=== PATIENT | female | born 2000 | race Caucasian/White ===

== ENCOUNTER 2022-10-21 10:42 | Emergency (ER) | payer OTHER, SELFPAY ==
[2022-10-21 10:51] VITALS: BP 111/78; PULSE 98; RESP 16; TEMP 36.9; O2SAT 100
--- NOTE | 2022-10-21 10:59 | ED.EYEPROB ---
HPI - Eye Problem General Chief complaint: Eye Problems Stated complaint: eyes Time Seen by Provider: 10/21/22 10:59 Source: patient, RN notes reviewed and old records reviewed Mode of arrival: ambulatory Limitations: no limitations History of Present Illness HPI Narrative: 22 year old female presents to [facility] care with complaints of awakening at 0400 with bilateral eyes crusted matted shut with some itching and burning and redness of eyes with some swelling of eyelids. Patient reports that she has used warm compresses to her eyes to remove matting and for comfort measure. Patient reports that right eye vision is a little blurry. Visual acuity noted bilateral eyes 20/50 without corrective lenses, patient does not wear contacts lenses.Patient reports that she has had known exposure to pink eye from friends children. MD chief complaint: eye redness and other (discharge) Onset (ago): hour(s) (0400 today) Onset description: awoke with symptoms Location: both eyes Eye Symptoms: burning, redness, itching and discharge Severity scale (1-10): 8 Treatments Prior to Arrival: other (warm compresses) Related Data Home Medications Medication Instructions Recorded Confirmed escitalopram oxalate 10 mg tablet 10 mg PO DAILY 10/21/22 10/21/22 norgestimate-ethinyl estradiol 1 tablet PO DAILY 10/21/22 10/21/22 0.18 mg/0.215mg/0.25mg-35 mcg(28)tablet (Tri-Sprintec (28)) Allergies Allergy/AdvReac Type Severity Reaction Status Date / Time No Known Allergies Allergy Verified 10/21/22 10:56 Review of Systems Review of Systems: CONSTITUTIONAL: Denies fever, chills, or sweats. EYES: Denies acute visual changes states right eye a little blurry. Reports redness, irritation, discharge bilateral eyes since awakening at 0400, some upper eyelid swelling and matting, burning discomfort ENT: Denies rhinorrhea, congestion, sore throat, or otalgia. CARDIOVASCULAR: Denies chest pain, palpitations, or edema. RESPIRATORY: Denies cough or dyspnea. SKIN: Denies rash or itching. NEUROLOGIC: Denies headache PMF Past Medical History Medical History (Updated 10/22/22 @ 07:26 by Millie Kong NP) Depression Social History Social History (Updated 10/22/22 @ 07:17 by Millie Kong NP) Smoking status: Never smoker Alcohol intake: current Alcohol use details: social Substance use type: does not use Gender identity (if verbalized by the patient): Female Comments At time of signature, agree with nursing past medical, surgical, social and family history. There is no relevant family history pertinent to the presenting complaint Exam Narrative: GENERAL: Well-appearing, well-nourished, and in no acute distress. HEAD: Normocephalic, atraumatic. EYES: PERRLA and EOMI. Upper and lower eyelids with some swelling. No periorbital cellulitis noted. Sclera and conjunctivae injected with burning and drainage, this am crusted shut, reports some blurring of vision right eye which clears, no sharp pain to eyes reported, visual acuity 20/50 bilateral eyes without correction ENT: Nares clear, no rhinorrhea or epistaxis. Mucous membranes moist. NECK: Supple. no lymphadenopathy CHEST: Clear to auscultation. No respiratory distress.no cough SAO2 100% on room air HEART: Regular rate and rhythm. No murmur heard. Normal peripheral pulses. SKIN: Warm, dry, no rash. NEURO: No focal deficits. Alert and oriented x3. Course Course Emergency Course: Patient is aware of diagnosis, understands and agrees to treatment plan. Anticipatory guidance given. Patient agrees to follow-up as directed and is aware of reasons to seek care at the emergency department. Portions of this record may have been created with voice recognition software Level of Care: Express Care Visit Vital Signs Vital signs: Vital Signs Temperature 36.9 C 10/21/22 10:51 Pulse Rate 98 10/21/22 10:51 Respiratory Rate 16 10/21/22 10:51 Blood Pressure 111/78
== END 2022-10-21 11:10 | disposition home or self-care (01) ==
PROVIDERS: Emergency Provider Registered Nurse
DX: H10.9 Unspecified conjunctivitis (principal); F32.A Depression, unspecified
CPT/HCPCS: 99213; G0463

== ENCOUNTER 2023-11-06 18:57 | Emergency (ER) | payer BC, SELFPAY ==
--- NOTE | 2023-11-06 19:09 | ED.URI ---
HPI - URI/Sore Throat General Chief Complaint: Upper Respiratory Infection Stated Complaint: Congestion/Sore Throat/Vomiting/Cough Time Seen by Provider: 11/06/23 19:09 Source: patient Mode of arrival: ambulatory Limitations: no limitations History of Present Illness HPI Narrative: 23 yo F presents with c/o fatigue, sore throat, cough, congestion, headache and sinus pressure for 3 days. Took home covid test and was negative. Afebrile. Prior to symptoms starting pt has had sinus congestion, off and on pressure for 1 wk. All systems reviewed and negative except as noted above. Related Data Home Medications Medication Instructions Recorded Confirmed norgestimate-ethinyl estradiol 1 tablet PO DAILY 10/21/22 10/21/22 0.18 mg/0.215mg/0.25mg-35 mcg(28)tablet (Tri-Sprintec (28)) Allergies Allergy/AdvReac Type Severity Reaction Status Date / Time No Known Allergies Allergy Verified 10/21/22 10:56 Review of Systems Review of Systems: CONSTITUTIONAL: Denies fever, chills, or sweats. Reports fatigue EYES: Denies visual changes, redness, or discharge. ENT: Reports rhinorrhea, congestion, sinus pressure, sore throat. Denies otalgia. CARDIOVASCULAR: Denies chest pain, palpitations, or edema. RESPIRATORY: Reports cough. Denies dyspnea. GASTROINTESTINAL: Denies abdominal pain, nausea, vomiting, or diarrhea. GENITOURINARY: Denies dysuria or hematuria. SKIN: Denies rash or itching. MUSCULOSKELETAL: Denies back pain, joint pain, or myalgia. NEUROLOGIC: Denies headache, numbness, or weakness. PSYCHIATRIC: Denies anxiety or depression. All other systems reviewed are negative, except as documented in HPI. [facility] Past Medical History Medical History (Updated 11/06/23 @ 19:39 by Ida Mendez NP) Depression Social History Social History (Updated 10/22/22 @ 07:17 by Millie Kong NP) Smoking status: Never smoker Alcohol intake: current Alcohol use details: social Substance use type: does not use Gender identity (if verbalized by the patient): Female Comments At time of signature, agree with nursing past medical, surgical, social and family history. There is no relevant family history pertinent to the presenting complaint. Exam Narrative: GENERAL: This is a well-nourished, well-developed patient, patient ill-appearing but no acute distress HEAD: normocephalic, atraumatic. EYES: PERRL. Sclera clear/white. Vision is grossly intact. EARS: External ears normal, auditory canals clear and without drainage, fluid bilateral TMs without erythema or perforation. Hearing grossly intact. NOSE: External nose normal with purulent nasal drainage, erythema and swelling to bilateral nares. Bilateral frontal maxillary sinus tenderness on palpation. THROAT: Mucous membranes moist, postnasal drainage with mild erythema. No significant swelling, exudates. NECK: Neck supple, non-tender without lymphadenopathy, masses or thyromegaly. CARDIOVASCULAR: Regular rate and rhythm without murmurs, gallops, or rubs. RESPIRATORY: Clear to auscultation. Breath sounds equal bilaterally. No wheezes, rales, or rhonchi. SKIN: warm, Dry, intact with no suspicious lesions or rash, good texture and turgor. NEURO: awake, alert, and oriented to person, place and time. There were no obvious focal neurologic abnormalities. EXTREMITIES: No joint tenderness, effusion, or edema noted. Course Course Level of Care: Express Care Visit Vital Signs Vital signs: Vital Signs Temperature 36.9 C 11/06/23 19:10 Pulse Rate 91 11/06/23 19:10 Respiratory Rate 16 11/06/23 19:10 Blood Pressure 105/74 11/06/23 19:10 Pulse Oximetry 100 11/06/23 19:10 Oxygen Delivery Room Air 11/06/23 19:10 Temperature 36.9 C 11/06/23 19:10 Pulse Rate 91 11/06/23 19:10 Respiratory Rate 16 11/06/23 19:10 Blood Pressure 105/74 11/06/23 19:10 Pulse Oximetry 100 11/06/23 19:10 Oxygen Delivery Room Air 11/06/23 19:10
[2023-11-06 19:10] VITALS: BP 105/74; PULSE 91; RESP 16; TEMP 36.9; O2SAT 100
== END 2023-11-06 19:22 | disposition home or self-care (01) ==
PROVIDERS: Emergency Provider Nurse Practitioner Family
DX: J01.90 Acute sinusitis, unspecified (principal)
CPT/HCPCS: 99213; G0463

== ENCOUNTER 2024-01-18 14:42 | Emergency (ER) | payer BC, SELFPAY ==
[2024-01-18 14:51] VITALS: BP 106/68; PULSE 95; RESP 18; TEMP 36.6; O2SAT 100
--- NOTE | 2024-01-18 15:32 | ED.SKABFB ---
HPI - Skin/Abscess/Foreign Bdy General Chief complaint: Skin/Abscess/Foreign Body Stated complaint: Skin Sore Time Seen by Provider: 01/18/24 15:32 Source: patient, RN notes reviewed and old records reviewed Mode of arrival: ambulatory Limitations: no limitations History of Present Illness HPI narrative: 23 year old female who presents to [facility] care with complaints of red raised lesion to the right side of betty when she awoke. Patient concerned of spider bite with no pustule or vesicle noted no center darkening or any tissue sloughing noted. Patient reports tenderness to raised lesion with no warmth or any fluctuation of tissue noted. Patient denies any fevers, chills or sweats MD complaint: insect bite/sting and lesion Onset (ago): day(s) (noted today this morning) Severity scale (1-10): 5 Quality: burning and aching Treatments prior to arrival: none Related Data Allergies Allergy/AdvReac Type Severity Reaction Status Date / Time No Known Allergies Allergy Verified 10/21/22 10:56 Review of Systems Review of Systems: CONSTITUTIONAL: Denies fever, chills, or sweats. CARDIOVASCULAR: Denies chest pain, palpitations, or edema. RESPIRATORY: Denies cough or dyspnea. GASTROINTESTINAL: Denies abdominal pain, nausea, vomiting SKIN: Reports redness and swelling with small raised red lesion noted to right neck no drainage or any pustule or vesicle formation, no acute warmth or surrounding redness, states is tender to palpation. MUSCULOSKELETAL: Denies myalgia. NEUROLOGIC: Denies headache, numbness All systems reviewed & are unremarkable except as noted in HPI and below PMFSH Past Medical History Medical History Depression Social History Social History Smoking status: Never smoker Alcohol intake: current Alcohol use details: social Substance use type: does not use Gender identity (if verbalized by the patient): Female Comments At time of signature, agree with nursing past medical, surgical, social and family history. There is no relevant family history pertinent to the presenting complaint Exam Narrative: GENERAL: Well-appearing, well-nourished, and in no acute distress. HEAD: Normocephalic, atraumatic. EYES: PERRLA and EOMI. ENT: Nares clear, no rhinorrhea or epistaxis. Mucous membranes moist. NECK: Supple. no lymphadenopathy CHEST: Clear to auscultation. No respiratory distress.SAO2 100% on room air HEART: Regular rate and rhythm. No murmur heard. Normal peripheral pulses. ABDOMEN: Soft, nontender, nondistended, normal active bowel sounds. EXTREMITIES: Normal range of motion. No edema. SKIN: Warm, dry. Erythema, induration, tenderness, no warmth no pustule or vesicle formation, 1cm diameter slightly raised no fluctuation of tissue to right side of neck NEURO: No focal deficits. Alert and oriented x3. Course Course Emergency Course: Patient is aware of diagnosis, understands and agrees to treatment plan. Anticipatory guidance given. Patient agrees to follow-up as directed and is aware of reasons to seek care at the emergency department. Portions of this record may have been created with voice recognition software Level of Care: Express Care Visit Vital Signs Vital signs: Vital Signs Temperature 36.6 C 01/18/24 14:51 Pulse Rate 95 01/18/24 14:51 Respiratory Rate 18 01/18/24 14:51 Blood Pressure 106/68 01/18/24 14:51 Pulse Oximetry 100 01/18/24 14:51 Oxygen Delivery Room Air 01/18/24 14:51 Temperature 36.6 C 01/18/24 14:51 Pulse Rate 95 01/18/24 14:51 Respiratory Rate 18 01/18/24 14:51 Blood Pressure 106/68 01/18/24 14:51 Pulse Oximetry 100 01/18/24 14:51 Oxygen Delivery Room Air 01/18/24 14:51 Reviewed MDM - Skin/Abscess/Foreign Bdy MDM Narrative Medical decision making narrative: Does not appear at this time to be erythema multiforme, bullous, SJS, TEN; no evidence at this time to suggest RMSF, endocarditis or Lyme disease; patient looks well, nontoxic and is tolerating oral intake; no neurologic signs or symptoms; no headache, photophobia or neck pain; afebrile; appropriate for initial outpatient treatment; discussed the importance of follow-up, patient agrees. Patient does not have history of penetrating trauma, laceration, blunt trauma, recent surgery, immunosuppression, malignancy, obesity, alcoholism, corticosteroid use. Question cellulitis, necrotizing soft tissue infection, abscess. Differential Diagnosis Differential diagnosis: Likely abscess of skin or subcutaneous tissue, cellulitis, insect bites, contact dermatitis and other (lesion right side of neck) Medical Records Attestation: I reviewed the patient's medical records. Critical Care Time Critical Care Time Critical Care Time: No Discharge Plan Discharge Clinical Impression: Insect bite of neck Patient Disposition: Home, Self-Care Condition: Stable Instructions: Antibiotic Form, Contact Dermatitis (ED), Insect Bite or Sting (ED) Additional Instructions: Wash by area to right neck with liquid Dial soap twice daily and apply bacitracin ointment watch for any increasing infection--redness, swelling, drainage Tylenol or ibuprofen follow up with PCP in 7-10 days for a wound check recheck if develop fever, chills, increasing symptom Go to the ER if your symptoms become worse of if ANY new symptoms develop Antibiotic as prescribed complete all doses If your symptoms persist, change or worsen significantly before you can contact your personal physician then please, without delay, go to the emergency department for further evaluation. Follow-up with PCP in 7-10 days or sooner if needed Prescriptions: New cephalexin 500 mg tablet 500 mg PO Q8H Qty: 21 0RF Follow-up/Referrals: PHYSICIAN NOT ON STAFF,NONSTAFF [Primary Care Provider] - Time of Disposition: 15:54 Quality Slemp Coma Scale Eyes: Open Verbal: Oriented and Alert Motor: Follows Commands Lexie Coma Total Score: 15
== END 2024-01-18 16:01 | disposition home or self-care (01) ==
PROVIDERS: Emergency Provider Registered Nurse
DX: S10.96XA Insect bite of unspecified part of neck, initial encounter (principal); W57.XXXA Bitten or stung by nonvenomous insect and other nonvenomous arthropods, initial encounter
CPT/HCPCS: 99213; G0463

== ENCOUNTER 2024-12-31 13:26 | Emergency (ER) | payer OTHER, SELFPAY ==
[2024-12-31 13:34] VITALS: BP 113/76; PULSE 115; RESP 20; TEMP 36.6; O2SAT 100
[2024-12-31 14:09] LABS: EDCOVIDSCREEN Negative (Negative); EDINFLUASCREEN Negative (Negative); EDINFLUBSCREEN Negative (Negative); EDSTREPNEGPOS1 Negative (Negative)
--- NOTE | 2024-12-31 14:26 | ED.URI ---
HPI - URI/Sore Throat General Chief Complaint: Upper Respiratory Infection Stated Complaint: congestion/ears/throat Time Seen by Provider: 12/31/24 14:00 Source: patient and RN notes reviewed Mode of arrival: ambulatory Limitations: no limitations History of Present Illness HPI Narrative: 24-year-old female presents Express Care complaining of upper respiratory symptoms for approximately 3 days. She also states having a possible stye and she noticed a possible stye 2 days ago to her left lower eyelid. Patient reports congestion, runny nose, cough, sore throat, ear fullness. Patient has any fevers, eczema chills, nausea vomiting, diarrhea, chest pain, difficulty breathing, pelvic pain vaginal bleeding, or any other symptoms. Patient is approximately 13 weeks . . Patient denies any complaints. Patient takes a daily vitamin along with vitamin B6 for morning sickness. Patient has been eating and drinking without issues. Patient has been taking Tylenol for symptoms, she is unsure what she is supposed to take all for symptoms. Related Data Home Medications ?Medication ?Instructions ?Recorded ?Confirmed ?Last Taken ?Type pyridoxine (vitamin B6) 25 mg mg 12/31/24 Unknown History tablet (Vitamin B-6) Allergies Allergy/AdvReac Type Severity Reaction Status Date / Time No Known Allergies Allergy Verified 12/31/24 13:37 Review of Systems Review of Systems: CONSTITUTIONAL: Denies fever, chills, body aches, or sweats. EYES: Denies visual changes, redness, or discharge. Positive for left lower eyelid swelling. ENT: Positive for rhinorrhea, congestion, sore throat, ear fullness. Negative for otalgia. CARDIOVASCULAR: Denies chest pain, palpitations, or edema. RESPIRATORY: Positive for cough. Negative for dyspnea. GASTROINTESTINAL: Denies abdominal pain, nausea, vomiting, or diarrhea. GENITOURINARY: Denies dysuria or hematuria. SKIN: Denies rash or itching. MUSCULOSKELETAL: Denies back pain, joint pain, or myalgia. NEUROLOGIC: Denies headache, numbness, or weakness. PSYCHIATRIC: Denies anxiety or depression. All other systems reviewed are negative, except as documented in HPI. [facility], [facility] Past Medical History Medical History Depression Social History Social History (Reviewed 12/31/24 @ 14:28 by AKANKSHA Escalante Smoking status: Never smoker Alcohol intake: current Alcohol use details: social Substance use type: does not use Gender identity (if verbalized by the patient): Female Comments At the time of my signature, I reviewed and agree with the nursing past medical, surgical, social, and family history. There is no relevant family history pertinent to the patient complaint. Exam Narrative: GENERAL: This is a well-nourished, well-developed adult, in no apparent distress. They are non ill-appearing, nontoxic appearing. HEAD: normocephalic, atraumatic. EYES: Sclera clear/white. Vision is grossly intact. Conjunctiva normal bilaterally. Extraocular movements intact. Pupils PERRLA. Right upper and lower eyelid normal. Left upper eyelid normal pro left lower eyelid with a erythematous nodule to the left lower lateral eyelid. Consistent with a external hordeolum. EARS: External ears normal, auditory canals clear and without drainage, TMs without erythema or perforation. Hearing grossly intact. NOSE: External nose normal with no obvious nasal discharge, nasal turbinates erythematous, no rhinorrhea. THROAT: Mucous membranes moist, posterior pharynx erythematous without exudate. Uvula is midline. Postnasal drip present. NECK: Neck supple, non-tender without lymphadenopathy, masses or thyromegaly. CARDIOVASCULAR: Regular rate and rhythm without murmurs, gallops, or rubs. RESPIRATORY: Clear to auscultation. Breath sounds equal bilaterally. No wheezes, rales, or rhonchi. Normal respiratory exam. SKIN: warm, Dry, intact with no suspicious lesions or rash, good texture and turgor. NEURO: awake, alert, and oriented to person, place and time. There were no obvious focal neurologic abnormalities. EXTREMITIES: No joint tenderness, effusion, or edema noted. BACK: Nontender without deformity. Course Course Emergency Course: Portions of this record may have been created with voice recognition software Level of Care: Express Care Visit Vital Signs Vital signs: Vital Signs Temperature 97.8 F 12/31/24 13:34 Pulse Rate 115 H 12/31/24 13:34 Respiratory Rate 20 12/31/24 13:34 Blood Pressure 113/76 12/31/24 13:34 Pulse Oximetry 100 12/31/24 13:34 Oxygen Delivery Room Air 12/31/24 13:34 Temperature 97.8 F 12/31/24 13:34 Pulse Rate 115 H 12/31/24 13:34 Respiratory Rate 20 12/31/24 13:34 Blood Pressure 113/76 12/31/24 13:34 Pulse Oximetry 100 12/31/24 13:34 Oxygen Delivery Room Air 12/31/24 13:34 MDM - URI/Sore Throat MDM Narrative Medical decision making narrative: Rapid COVID, flu, strep were negative. A throat culture is pending. Symptoms likely viral upper respiratory infection. Patient given a list of approved medications to take [id number] while , patient advised that this is a guide in she needs to consult to OBGYN about these medications prior to starting them for symptom management. Discussed sinus rinses for congestion with Neti pot. Advised patient to use distilled water, no tap water continues as directed on the packaging. Patient also has an external stye to her left lower eyelid, recommend warm compresses and lid washing. Discussed physical exam findings. Advised supportive measures and signs/symptoms to go to the ER. Pt is appropriate for outpt treatment and f/u. Differential Diagnosis Differential diagnosis: Likely upper respiratory infection, sinusitis, viral infection, pharyngitis and other (hordeolum, chalazion) Lab Data Attestation: I reviewed the patient's lab results. Labs: Lab Results 12/31/24 Range/Units 13:52 POC Influenza A Ag Negative (Negative) POC Influenza B Ag Negative (Negative) POC SARS CoV-2 Ag Negative (Negative) POC Grp A Strep Screen Negative (Negative) Discharge Plan Discharge Clinical Impression: External hordeolum Qualifiers: Laterality: left Eyelid: lower Qualified Code(s): H00.015 - Hordeolum externum left lower eyelid Upper respiratory infection Qualifiers: URI type: acute nasopharyngitis (common cold) Qualified Code(s): J00 - Acute nasopharyngitis [common cold] Patient Disposition: Home Condition: Stable Instructions: Antibiotic Form, Stye (ED), Upper Respiratory Infection (ED) Additional Instructions: Your rapid COVID, flu, rapid strep swab was negative today at [facility]. You will be notified in a few days if the culture comes back positive for strep, and appropriate antibiotics will be called in for you at that time. Your symptoms are likely due to a viral illness, which is not treated with antibiotics. Viral symptoms can be present for up to 7-10 days. Take Tylenol as needed for fever or pain. Follow instructions on the bottle. Rest and stay hydrated. Follow up with your PCP in 3-5 days if symptoms are not improving. Go to the ER immediately if you developed chest pains, nausea, vomiting, worsening fevers, difficulty breathing or swallowing, concerns of dehydration, or any serious concerns. Apply warm, moist compresses on the affected area frequently (for 5 to 10 minutes three to five times per day) in order to help with drainage. Massage and gentle wiping of the affected eyelid after the warm compress can also help with drainage. You can use baby shampoo to wash the eye area Avoid wearing eye makeup or contact lenses If the lesion does not improve within one to two weeks, please follow up with an dusting and brushing machine operator for further management. A list was provided for you for medications approved to be for use the , this is the guide, please consult your OBGYN about [id number] medications you can take while . Patient Language: [place] Prescriptions: No Action pyridoxine (vitamin B6) [Vitamin B-6] 25 mg tablet Follow-up/Referrals: PHYSICIAN,SENIOR DATA INTEGRATION DEVELOPER [Primary Care Provider, Internal Medicine] Time of Disposition: 14:21
--- OUTSIDE RECORDS SUMMARY | 2024-12-31 15:18 | XMS_ITS | Clinical Summary ---
Author Organization [facility] Address [address] [place] [address] Care Team Providers Care Money Manager Name Role Phone Joselito Parks PT Unavailable Unavailable Referring, Unknown MD Primary Care Provider Unav ailable Allergies Active Allergy Reactions Criticality Noted Date Comments Buspirone Agitation Low 07/06/2020 Medications albuterol HFA (PROVENTIL HFA,VENTOLIN HFA,PROAIR HFA) 90 mcg/actuation inhalerIndications :Viral URI Inhale 2 puffs every 6 (six) hours as needed for wheezing 1 each 06/13/19 23 Active Additional Information Patient not taking.Reported on 09/25/2024 ondansetron ODT (ZOFRAN-ODT) 4 mg disintegrating tablet Take 1 tablet (4 mg total) by mouth every 6 (six) hours as needed 03/04/20 23 Active Ashlyna 0.15 mg-30 mcg (84)/10 mcg (7) tablets,dose pack,3 month Take 1 tablet by mouth daily 05/22/19 24 Active sertraline (ZOLOFT) 50 mg tablet Take 1.5 tablets (75 mg total) by mouth daily 03/11/20 24 Active propranoloL (INDERAL) 10 mg tablet Take 1 tablet (10 mg total) by mouth 3 (three) times a day 90 tablet 1 03/11/20 24 Active FLUoxetine (PROzac) 20 mg capsule Take 1 capsule (20 mg total) by mouth daily 06/27/19 25 Active meloxicam (MOBIC) 15 mg tablet Take 1 tablet (15 mg total) by mouth daily 30 tablet 08/15/19 25 Active ALPRAZolam (XANAX) 1 mg tablet Take 1 tablet (1 mg total) by mouth daily as needed for anxiety Take 30 minutes to 1 hour prior to procedure 1 tablet 08/29/19 25 Active Active Problems Problem Noted Date Diagnosed Date Class 1 obesity due to exces s calories without serious comorbidity with body mass index (BMI) of 30.0 to 30.9 in adult 07/23/2024 Assessment & Plan (07/23/2024 3:52 PM CDT): Wt Readings from Last 3 Encounters: 07/23/24 77.3 kg (170 lb 6.4 oz) 03/11/24 71.3 kg (157 lb 1.6 oz) 10/18/23 72.5 kg (159 lb 14.4 oz) BMI Readings from Last 3 Encounters: 07/23/24 29.23 kg/m 03/11/24 26.95 kg/m 10/18/23 27.43 kg/m Not at goal of bmi <30 Continue diet and exercise BMI Follow-up includes: nutrition counseling and exercise counseling. Crushing injury of left hand and finger 10/05/19 Assessment & Plan (10/18/2023 7:54 AM CDT): Continue nsaids Splintnig Xray now Left wrist sprain, subsequent encounter 10/05/19 Retraction of left nipple 07/03/2023 COVID-19 virus infection 05/25/2023 Diarrhea 05/09/2022 Assessment & Plan (05/31/2022 3:23 PM CDT): Chronic previously with alternating constipation now worsening diarrhea occurring 5 days of the week, multiple times a day with or without food. No specific triggers, has nocturnal symptoms. No hematochezia, some greasy stool. No weight loss. Associated with abdominal pain. Bentyl initially helped but not anymore. Was put on amitriptyline 10mg 2 weeks ago has not noticed any relief yet.normal cbc, cmp, tsh. CT 10/2021 with underdistension of left colon vs mild enteritis/colitis. Will check above labs and continue bentyl. Plan for colonoscopy if labs show concerning findings or symptoms don't improve/worsen. Otherwise can do trial of rifaximin for IBS-D Assessment & Plan (05/09/2022 10:11 AM RN BUILDING): Not at goal at this time - will refer to GI - will start enlavil 10 mg qhs and see if that improves her diarrhea and abdominal pain sx as well as her sleep Annual physical exam 12/08/2021 Assessment & Plan (03/11/2024 8:14 AM RN BUILDING): Discussed lifestyle modifications, diet and exercise. Routine blood work ordered/reviewed today. Yearly vision and dental examinations. Assessment & Plan (03/08/2023 9:22 AM RN BUILDING): Discussed lifestyle modifications, diet and exercise. Routine blood work ordered/reviewed today. Yearly vision and dental examinations. Assessment & Plan (12/08/2021 9:44 AM CDT): Discussed lifestyle modifications, diet and exercise. Routine blood work ordered/reviewed today. Yearly vision and dental examinations. Gastroenteritis 10/26/2021 Assessment & Plan (10/26/2021 4:24 PM CDT): Viral ddx covid or flu. May have tested too early Symptomatic relief. Tylenol prn for fevers.If fevers do not resolve with tylenol instructed to report to the emergency room Instructed to have a low threshold of going to the emergency room zofran for nausea Consider stool cultures and blood cultures if no improvement F/u in 10 days or sooner if worsening symptoms Chronic idiopathic constipation 09/14/2021 Abdominal pain 09/14/2021 Overview (09/14/2021): pain still not controlled has + murphys. associated with nausea, pain is not localized Assessment & Plan (09/06/2022 10:57 AM CDT): Significant improvement since she started her amitriptaline Has had significant improvement Continue elavil 10 mg qhs Assessment & Plan (07/26/2022 10:54 AM CDT): Pain still nto controlle d- following with gi Recently started on protonix Never started her elavil, will hold off now as we are starting her on another ssri Assessment & Plan (05/31/2022 3:25 PM CDT): Chronic epigastric and diffuse lower abdominal with progressive worsening since summer 2021. Associated with nausea, vomiting and worsening diarrhea occurring 5 days of the week, multiple times a day with or without food. No hematochezia, some greasy stool. No weight loss. Pain not always better with bm. Bentyl initially helped but not anymore. Was put on amitriptyline 10mg 2 weeks ago has not noticed any relief yet. Takes ibuprofen regularly. Normal CBC CMP from 10/2021. Normal TSH 2020, normal lipase 2017. CT 10/2021 showed mild mucosal thickening in the transverse and left colon likely related to under distention versus mild enteritis. No previous endoscopy. Suspect IBS-D, SIBO, IBD, dyspepsia, PUD, celiac disease Plan Check stool h pylori, celiac panel, ESR, CRP, fecal calpro, lipase Empiric trial of once daily pantoprazole Avoid NSAIDs If no relief in 3 months or if labs show any concerning findings will plan for EGD and colonoscopy Vaccine counseling 12/07/2020 Assessment & Plan (12/07/2020 8:17 AM CDT): Discussed risks and benefits of COVID vaccine. Discussed Moderna verses Pfizer vs. Aman Aman vaccines. Recommended vaccine , Moderna or pfizer . Pt is interested. Given directions on how to obtain through health department or [facility] or [employer]. Dysmenorrhea 02/02/2017 B12 deficiency 04/26/2016 Assessment & Plan (04/20/2020 8:26 AM RN BUILDING): Will check B12, cbc today Panic disorder without agoraphobia with mild crabtree ic attacks 04/25/2016 Assessment & Plan (10/26/2022 12:38 PM CDT): See above No further panic attacks Assessment & Plan (09/06/2022 10:58 AM CDT): See above No further panic attacks Assessment & Plan (05/12/2021 8:20 PM RN BUILDING): Patient has been doing well without medications. She is not wish to start any medications currently. Will have her follow-up for physical by end of year Assessment & Plan (02/04/2021 10:26 AM RN BUILDING): Encouraged counseling. Increase Lexapro to 20 mg once daily. Will have her follow-up in 3 months for recheck. Encouraged to call in the interim if needed Assessment & Plan (12/07/2020 8:18 AM CDT): Patient wishes to try a different medication. Will try escitalopram 5 mg once daily. Will have her follow-up in 1 month for recheck. Encouraged to call in the interim if any problems or concerns Assessment & Plan (07/06/2020 8:00 AM CDT): Improved with sertraline 100 mg once daily. Will continue her on current medications. Asked her to call me if there are any problems or concerns otherwise will see her back this fall for recheck Assessment & Plan (04/20/2020 8:43 AM RN BUILDING): Discussed starting a medication and pt is agreeable. Will start sertraline . Discussed starting dose and titration to full dose, possible SE and time frame for expected results. Call if any suicidal thoughts or questions concerning SE. Do not abruptly stop medication without calling office. Follow up in 3-4 weeks for recheck and continuation of medications. Also discussed counseling and referral to psychiatry and recommended Cindy Gonzalez. Information given for her to call. Migraine aura occurring with and without headach e 04/01/2015 Overview (06/23/2016): Migraine Assessment & Plan (03/11/2024 8:11 AM RN BUILDING): Worsening sx +nausea and some blurryness due to pain Continue tylenol/ibuprofen prn Start propranolol 10 mg tid due to worsening migraines, palpitations Anxiety and depression 01/29/2014 Overview (01/23/2017): Celexa 20mg Assessment & Plan (07/23/2024 3:50 PM CDT): Imoprovement at this time Switched from zoloft to prozac 20 mg And doing well Assessment & Plan (03/11/2024 8:06 AM RN BUILDING): Worsening at this time Was previously seeing a therapist but Suzie states that that therapist stopped seeing her Does have new appt in March Not at goal Sx are worse due to current life stressors Increase sertraline to 75 mg every day Assessment & Plan (10/18/2023 8:04 AM CDT): Stable D/c elavil Following with therapist at [facility] of trauma Chart reviewed today Assessment & Plan (05/25/2023 2:26 PM RN BUILDING): Stable No longer taking any medication Assessment & Plan (10/26/2022 12:35 PM CDT): States that she has had singificant improvement in her sx Will continue her lexapro 10 mg every day And ativan 0.5 mg bid prn Assessment & Plan (09/06/2022 10:58 AM CDT): States that she has had singificant improvement in her sx Will continue her lexapro 10 mg every day And ativan 0.5 mg bid prn Assessment & Plan (07/26/2022 12:03 PM CDT): Patient reiterated no suicidal thoughts at this time; take medication as directed; contact 911 and go to the ER if becomes suicidal; discussed side effects of medication with patient; encouraged healthy diet and exericise; encouraged patient to see a counselor Not at goal at thsi time Start [id number] mg every day and ativan 0.5 mg q12h prn Return to care in about 4 to 8 weeks for sx check and medication mgmt Due to the above patient today requesting forms filled uot for work accomdations/fmla Multiple forms brouvght intoday and filled by today by me regarding the above. No dx stated on form only impairments and accomodation requests Myopia 01/30/2012 Overview (06/23/2016): Myopia History of urinary anomaly 01/30/2012 Overview (06/24/2016): History of recurrent UTIs Ventricular septal defect 1998 Resolved Problems Problem Noted Date Diagnosed Date Resolved Date Bilateral hearing loss 10/06/201704/20 Major depressive disorder, r ecurrent episode, severe with anxious distress 08/18/2017 04/20/2020 Major neurocognitive disorde r due to another medical condition with behavioral disturbance 08/18/2017 04/20/2020 Concussion without loss of consciousness 07/07/2017 04/20/2020 Intractable cluster headache syndrome 04/26/2016 04/20/2020 School problem 04/26/2016 04/20/2020 Fatigue 04/14/2016 04/20/2020 Gastroesophageal reflux disease 04/14/2016 04/20/2020 Migraine without aura and wi th status migrainosus, not intractable 04/14/2016 04/20/2020 Irritable bowel syndrome 12/24/201203/2020 Overview (06/23/2016): Irritable bowel syndrome Acute streptococcal pharyngitis 05/31/2012 04/20/2020 Overview (06/23/2016): Strep pharyngitis Acne 04/04/2012 04/20/2020 Overview (06/23/2016): Acne Dysmenorrhea 04/04/2012 04/20/2020 Overview (06/24/2016): Dysmenorrhea Medical examinations/reports status 01/30/2012 04/20/2020 Overview (06/23/2016): Health care maintenance History of asthma 01/30/2012 04/20/2020 Overview (06/23/2016): History of asthma Attention deficit disorder ( ADD) without hyperactivity 01/30/2012 04/20/2020 Overview (01/23/2017): Concerta 36mg LAST Rx 02/2015 Acute upper respiratory infection 06/21/2006 04/20/2020 Acute suppurative otitis med ia without spontaneous rupture of ear drum 05/24/2006 04/20/19 Acute pharyngitis 03/24/2006 04/20/2020 Constipation 03/24/2006 04/20/2020 Viral warts 03/24/2006 04/20/2020 Urinary tract infection, site not specified 01/09/2006 04/20/2020 Person with feared complaint in whom no diagnosis was made 08/16/2005 04/20/2020 Academic underachievement di sorder of childhood or adolescence 07/01/2005 04/20/2020 Impacted cerumen 12/14/2004 04/20/2020 Closed fracture of upper end of tibia 08/13/2004 04/20/2020 35-36 completed weeks of gestation(765.28) 1998 04/20/2020 Encounters Date Type Department Care Team Description 12/05/2024 11:00 AM CDT Therapy [facility] Physical [address] [facility] [place] [address] Joselito Parks, PT Bankart lesion of right shoulder, initial encounter (Primary Dx) 11/28/2024 9:07 AM CDT - 11/28/2024 11:59 PM CDT Hospital Encounter [facility] [address] [place] [address] Antepartum hemorrhage, unspecified, unspecified trimester Discharge Disposition: Discharge to home or self care 11/21/2024 10:15 AM CDT Therapy [facility] Physical [address] [facility] [place] [address] Joselito Parks, PT Bankart lesion of right shoulder, initial encounter (Primary Dx) 11/06/2024 4:15 PM CDT Therapy [address] [place] [address] Joselito Parks, PT Bankart lesion of right shoulder, initial encounter (Primary Dx) 10/30/2024 1:45 PM CDT Therapy [address] [facility] [place] [address] Joselito Parks, PT Bankart lesion of right shoulder, initial encounter (Primary Dx) 10/23/2024 1:00 PM CDT Therapy [address] [place] [address] Joselito Parks, PT Bankart lesion of right shoulder, initial encounter (Primary Dx) 10/18/2024 1:45 PM CDT Therapy [address] [place] [address] Joselito Parks, PT Bankart lesion of right shoulder, initial encounter (Primary Dx) 10/07/2024 1:00 PM CDT Therapy [address] [place] [address] Joselito Parks, PT Bankart lesion of right shoulder, initial encounter (Primary Dx) 10/07/2024 Plan of Care Documentation [address] [place] [address] from Last 3 Months Immunizations Immunization Administration Dates Next Due DTaP 06/16/2003, 4,12/20/1999,12/13,1998,1998 HPV, Quadrivalent 08/05/2009,12/19/2008,10/21/19 09 Hep A, Pediatric 08/05/2009,10/20/2008 Hep B, Adolescent or Pediatric 1998,1998,1998 Hib (HbOC) 05/17/2001,1998,1998 Hib (PRP-T) 05/17/2001, 9,1998,07/08 IPV 06/16/2003, 4,12/20/1999,09/05,1998 Influenza, Quadrivalent, Spl it, Preservative Free, Intramuscular 03/08/2023,01/08/2018,12/18/2017 Influenza, Trivalent, IM (MDV) 01/26/2011,2009,12/19/2008 Influenza, Unspecified 06/17/2024(Deferr ed: Patient Refused),03/11/2024(Deferred: Patient Refused),12/18/2020(Deferred: Patient Refused),10/18/2020(Deferred: Patient Refused),04/20/2020(Deferred: Patient Refused),12/19/2019(Deferred: Patient Refused) MMR 06/16/2003,06/16/2003,05/17/2001 Meningococcal Conjugate (Menveo) 12/17/2015 Meningococcal MCV4P (Menactra) 12/17/2015 Meningococcal Polysaccharide (Menomune) 07/26/2010 OPV 12/20/1999,1998,1998 Pfizer SARS-CoV-2 Monovalent Vaccination (12+ Yrs) PURPLE 03/16/2021,02/23/2021 Tdap 02/11/2009 Varicella 10/20/2008 Medical History Medical History Date Comments Closed fracture of upper end of tibia 08/13/2004 Attention deficit disorder ( ADD) without hyperactivity 01/30/2012 Concerta 36mg LAST Rx 5 Major neurocognitive disorde r due to another medical condition with behavioral disturbance (HCC) 08/18/2017 Premature baby 1998 4-10 34 wks; tox emia Ankle fracture 2004 FX L ankle Concussion 2002 Concussion Concussion 2003 Concusssion Anxiety Brain concussion Depression Migraines Menstrual problem Family History Medical History Relation Name Comments Heart attack Father Davis Myocardial infa rction; Hypertension Father Davis Hypertension; Other Father Davis OCD; Skin cancer Father Davis Breast cancer Father's Sister 1 Cancer, b reast; Cause of : Cancer, breast Breast cancer Father's Sister 2 Other Maternal Grandmother Substan ce abuse/group home; Other Mother Anxiety/tics/de pression; Depression Mother's Brother Depression; Other Other 1 Family history of Sudden <50: 7 cardiac; Other Other 2 Family history of CAD (Father - stents); Diabetes Other 3 Family history of Diabetes; Relation Name Status Comments Father Davis Alive Father's Sister 1 Father's Sister 2 Alive Maternal Grandmother Mother Alive Mother's Brother Other 1 Other 2 Other 3 Social History Tobacco Use Types Packs/Day Years Used Date Smoking Tobacco: Never Smokeless Tobacco: Never Tobacco Cessation:Counseling Given: Not Answered Alcohol Use Standard Drinks/Week Comments No 0 (1 standard drink = 0.6 oz pur e alcohol) AUDIT-C Answer Date Recorded Q1: How often do you have a drink containing alcohol? Never 03/08/2023 Q2: How many drinks containi ng alcohol do you have on a typical day when you are drinking? Patient does not drink Q3: How often do you have si x or more drinks on one occasion? Never 03/08/2023 PHQ-2 Answer Date Recorded PHQ-2 Total Score (If total score is 3 or more points, staff should administer the PHQ-9) 0 07/23/2024 Personal Safety Answer Date Recorded Have you ever been in or are you currently in a harmful physical or emotional relationship or is someone making you feel afraid or unsafe? Denies 10/05/2023 Education Answer Date Recorded What is the highest level of school you have completed or the highest degree you have received? High school graduate 04/20/2020 Comments No Sex and Gender Information Value Date Recorded Sex Assigned at Not on file Legal Sex Female 5:45 PM RN BUILDING Gender Identity Not on file Sexual Orientation Not on file Obstetrics History Para Term AB IAB SAB Ectopic Multiple Livin g Live Births 0 0 0 0 0 0 0 0 0 0 0 Last Filed Vital Signs Vital Sign Reading Time Taken Comments Blood Pressure 128/74 09/25/2024 3:46 PM CDT Pulse 98 09/25/2024 3:46 PM CDT Temperature 36.5 C (97.7 F) 09/25/2024 3:46 PM CDT Respiratory Rate 20 09/25/2024 3:46 PM CDT Oxygen Saturation 97% 09/25/2024 3:46 PM CDT Inhaled Oxygen Concentration - - Weight 80.3 kg (177 lb) 09/25/2024 3:46 PM CDT Height 162.6 cm (5' 4) 09/25/2024 3:46 PM CDT Body Mass Index 30.38 09/25/2024 3:46 PM CDT Plan of Treatment Health Maintenance Due Date Last Done Comments Varicella Vaccines (2 of 2 - 2-dose childhood series) 01/12/2009 10/20/2008 DTaP/Tdap/Td Vaccine (7 - Td or Tdap) 02/11/2019 02/11/2009, 06/16/2003, 06/16/2003, Additional history exists Cervical Cancer Screening 11/10/2022 11/10/2021 Covid-19 Vaccine ( season) 2024 03/16/2021, 02/23/2021 Influenza Vaccine (#1) 2024 , 01/08/2018, 12/18/2017, Additional history exists Regular Well Visit/Exam 18-64 03/11/2025 03/11/2024, 03/08/2023, 12/08/2021 Depression Screening 07/23/2025 07/23/2024, 03/11/2024, 10/18/2023, Additional history exists Hepatitis B Screening Completed 1998 , 1998, 1998 HPV Vaccines Completed 08/05/2009, 04/2008, 10/20/2008 Hepatitis C Screening Completed 11/02/2021, 022 Pneumococcal vaccine <65 Aged Out No longer eligible based on patient's age to complete this topic Procedures Procedure Name Priority Date/Time Associated Diagnosis Comments US OB FOLLOW UP Schedule Routine, Read Routine (OP Routine) 11/28/2024 11:09 AM CDT Antepartum hemorrhage, unspecified, unspecified trimester HM PAP SMEAR WITH HPV Routine 11/10/2021 HEPATITIS PANEL, ACUTE Routine 11/02/2021 1:16 PM CDT Routine screening for STI (sexually transmitted infection) from Last 3 Months or Most Recently Relevant to Health Maintenance Results * US Ob Follow Up (11/28/2024 11:09 AM CDT) Anatomical Region Laterality Modality Abdomen N/A Ultrasound 12/05/2024 8:35 AM CDT Narrative 12/05/2024 8:45 AM CDT EXAM DESCRIPTION: US OB FOLLOW UP REASON FOR STUDY: TECHNIQUE: Limited transabdominal grayscale ultrasound for obstetrical evaluation. COMPARISON: 11/06/2024. FINDINGS: Clinical age is 9 weeks 0 days with an RANJEET 07/03/2025. Uterus is 9.7 x 6.2 x 7.5 cm. There is a single intrauterine with the pole and yolk sac. Mean crown-rump length is 2.47 cm corresponding to an estimated age 9 weeks 1 day with an RANJEET 07/02/2025. The heart rate is 179 beats per minute. Yolk sac 0.5 cm. No evidence of subchorionic hemorrhage. Right ovary is 5.9 x 4.7 x 5.2 cm. Preserved color flow and waveforms right ovary. There is a septated structure in the right ovary, there is some flow shown in the septation. This measures 5.7 x 4.1 x 5.4 cm. This is indeterminate whether this is a hemorrhagic cyst or other complex cystic structure. Attention on follow-up imaging recommended. Left ovary 3.7 x 2.8 x 3.1 cm. Preserved color flow and waveforms left ovary. IMPRESSION: 1. Single uterine estimated at 9 weeks 1 day with RANJEET 07/02/2025. 2. heart rate 179 beats per minute. 3. No evidence of subchorionic hemorrhage or other complication. 4. Mildly complex right ovarian cystic structure, attention on follow-up imaging. THIS IS AN ELECTRONICALLY VERIFIED FINAL REPORT 12/05/2024 8:45 AM - Electronically signed by Andre Vaughn M.D. CH: [email or web address] Report ID: [id number] Reading Location: [id number] Procedure Note Andre Vaughn MD - 12/05/2024 EXAM DESCRIPTION: US OB FOLLOW UP REASON FOR STUDY: TECHNIQUE: Limited transabdominal grayscale ultrasound for obstetrical evaluation. COMPARISON: 11/06/2024. FINDINGS: Clinical age is 9 weeks 0 days with an RANJEET 07/03/2025. Uterus is 9.7 x 6.2 x 7.5 cm. There is a single intrauterine with the pole and yolk sac. Mean crown-rump length is 2.47 cm corresponding to an estimated age 9weeks 1 day with an RANJEET 07/02/2025. The heart rate is 179 beats per minute. Yolk sac 0.5 cm. No evidence of subchorionic hemorrhage. Right ovary is 5.9 x 4.7 x 5.2 cm. Preserved color flow and waveformsright ovary. There is a septated structure in the right ovary, there is someflow shown in the septation. This measures 5.7 x 4.1 x 5.4 cm. This is indeterminate whether this is a hemorrhagic cyst or other complex cystic structure. Attention on follow-up imaging recommended. Left ovary 3.7 x 2.8 x 3.1 cm. Preserved color flow and waveforms leftovary. IMPRESSION: 1. Single uterine estimated at 9 weeks 1 day with EDD07/02/2025. 2. heart rate 179 beats per minute. 3. No evidence of subchorionic hemorrhage or other complication. 4. Mildly complex right ovarian cystic structure, attention on follow-up imaging. THIS IS AN ELECTRONICALLY VERIFIED FINAL REPORT 12/05/2024 8:45 AM - Electronically signed by Andre Vaughn M.D. CH: [email or web address] Report ID: [id number] Reading Location: [id number] us Mckenzie Morrison JR. SYSTEMS ADMINISTRATOR IMG OB US PROCEDURES Final Re sult * HM PAP SMEAR WITH HPV (11/10/2021) us Generic External Data Provider [facility] MAINTE[facility] E Final Result * Hepatitis panel, acute (11/02/2021 1:16 PM CDT) Hep A IgM Nonreactive Nonreactive [facility] (CINDY) Comment: Interpretive Data: If Hep A IgM Ab is reported as Equivocal, a new sample should be drawn in two weeks for testing. Current interpretive data was last revised on 19. Testing performed by: [facility], [address] [place] [address]., [id number] Hep B core IgM Nonreactive Nonreactive C MIREILLE SANTANA (CINDY) Comment: Interpretive Data If HepB Core IgM Ab is reported as Equivocal, a new sample should be drawn in two weeks for testing. Current interpretive data was last revised on 19. Testing performed by: [facility], [address] [place] [address]., [id number] Hep C Ab Nonreactive Nonreactive CHET SANTANA (CINDY) Comment: Interpretive Data Nonreactive: Antibodies to HCV not detected. Does NOT exclude the possibility of recent exposure to HCV. Equivocal: Equivocal for HCV antibodies. Supplemental molecular testing will be automatically performed to determine infection status in accordance with current CDC screening recommendations. Reactive: Positive for HCV antibodies. This may represent current or past HCV infection. Supplemental molecular testing will be automatically performed to determine current infection status in accordance with current CDC screening recommendations. Interpretive data was last revised on 2019. Testing performed by: [facility], [address] [place] [address]., [id number] HepBsAg Nonreactive Nonreactive CHET SANTANA (CINDY) Comment:Testing performed by : [address] [id number] Blood 11/02/2021 1:16 PM CDT 11/02/2021 6:36 PM CDT Cookie Funez NP LAB MICROBIOLOGY - GENERAL ORDERABLES Final Result CHET SANTANA (CINDY) 1 [facility] Department [place] [address] from Last 3 Months or Most Recently Relevant to Health Maintenance Insurance [employer] [facility] [place] [address] Care Teams Money Manager Relationship Specialty Start Date End Date Referring, Unknown, MD PCP - General Pediatrics 11/08/24 Joselito Parks, PT Physical Therapist Physical Therapy 10/07/24
--- OUTSIDE RECORDS SUMMARY | 2024-12-31 15:19 | XMS_ITS ---
Author Organization [facility] Address [address] [address] Phone Care Team Providers Care Courtesy Bus Driver Name Role Phone Gildardo Guerra MD Primary Care Provider [phone] [facility] Service Episode Status:Identified (Enrolling) Start date:08/15/2024 Related program episode:[facility] (Active) Continued Care and Services Coordination
--- OUTSIDE RECORDS SUMMARY | 2024-12-31 15:19 | XMS_ITS | Encounter Summary ---
Author Organization [facility] Address [address] [place] [address] [place] [address] Care Team Providers Care Locum Tenens Name Role Phone Unavailable Primary Care Provider Unavailabl e Encounter Details Date Type Department Care Team (Late st Contact Info) Description 12/17/2021 Lab Requisition [facility] Lab [address] [place] [address] [place] [id number] [place] [address] [place] [id number] Social History Tobacco Use Types Packs/Day Years Used Date Smoking Tobacco: Never Assessed Comments Unknown Sex and Gender Information Value Date Recorded Sex Assigned at Not on file Legal Sex Female 5:38 AM DIABETES NURSE Gender Identity Not on file Sexual Orientation Not on file documented as of this encounter Plan of Treatment Not on file documented as of this encounter Procedures Procedure Name Priority Date/Time Associated Diagnosis Comments DERMATOPATHOLOGY Routine 12/16/2021 12:0 0 AM CDT documented in this encounter Results * DERMATOPATHOLOGY (12/16/2021 12:00 AM CDT) Case Report Dermatopathology Report Case: [id number] Authorizing Provider: Anirudh Witt MD Collected: 12/16/2021 12:00 AM Ordering Location: [facility] Received: 12/17/2021 11:18 AM Pathologist: Indy Carl MD Specimen: Skin, right dorsal hand 4:20 PM T DERMATOPATHOLOGY LABORATORY Final Diagnosis Specimen A. SKIN, right dorsal hand: TELANGIECTASES (I78.1) (see microscopic description and comment) 4:20 PM T DERMATOPATHOLOGY LABORATORY at 1620 CDT Clinical History R/O neoplasm of uncertain behavior of skin, mastocytoma of skin, nevus flammeus 4:20 PM T DERMATOPATHOLOGY LABORATORY Gross Description Specimen A: Received is one formalin filled container labeled with the patient's name and designated right dorsal hand. The specimen consists of a punch biopsy measuring [id number] and it is bisected. Jar 0. 4:20 PM T DERMATOPATHOLOGY LABORATORY Microscopic Description Specimen A. SKIN, right dorsal hand: Within the dermis there are dilated thin-walled vessels lined by a single layer of endothelium, highlighted by CD31 immunostain. D2-40 is positive in scattered lymphatic vessels. CD117 does not reveal significantly increased mast cells in the dermis. COMMENT: In the correct clinical setting, these histologic features can be seen in a capillary malformation (nevus flammeus). Clinical correlation is recommended. 4:20 PM T DERMATOPATHOLOGY LABORATORY Disclaimer An external and internal positive and negative controls are appropriate for the histochemical, immunohistochemical and immunofluorescence stain(s) in this case (if any), except where stated explicitly. The performance characteristics of the stain(s) cited in this report were developed and its performance characteristic determined by the Dermatopathology Laboratory at [facility], directed by Dr. Radha Kirby. These tests need not be, and therefore are not, approved by the [place] Food and Drug Administration. The tests are used for clinical purposes. Billing Codes Specimen Charges Stain Charges 15648 1 20206 25458 68010 1 1 1 4:20 PM CDT DERMATOPATHOLOGY LABORATORY Embedded Images 4:20 PM CDT DERMATOPATHOLOGY LABORATORY Pathology/Cytolog y TISSUE SPECIMEN FROM SKIN / Unknown 12/16/2021 12/17/2021 11:18 AM CDT us Anirudh Witt MD LAB - PATHOLOGY/CYTOLOGY O ROB Final Result DERMATOPATHOLOGY LABORATORY [facility] - Department of Dermatology [facility] Medicine [address] [place] [address], [address] Floor [address] [phone] documented in this encounter Visit Diagnoses Not on filedocumented in this encounter
--- OUTSIDE RECORDS SUMMARY | 2024-12-31 15:19 | XMS_ITS | Clinical Summary ---
Author Organization [facility] Address [address] [facility], [address] [address] Phone Care Team Providers Care Tile Erector Name Role Phone Gildardo Guerra MD Primary Care Provider [phone] Allergies Active Allergy Reactions Criticality Noted Date Comments Buspirone Anxiety,Shortness of Breath Low 07/07/19 21 Medications Cyanocobalamin (B-12) 1000 MCG Capsule Take 1,000 mcg by mouth daily. 30 Cap 3 7 Active Butalbital-APAP- Caffeine 50-300-40 MG CapsuleIndicatio ns:Acute headache Take 1 Capsule by mouth every 4 hours as needed for Other (headache). 15 Capsule 2 Active Additional Information Patient not taking.Reported on 02/23/2024 albuterol (ProAir HFA) 108 (90 Base) MCG/ACT Aerosol SolutionIndicati ons:SOB (shortness of breath),Acute cough take 2 Puffs by inhalation every 4 hours as needed for Wheezing or Cough. 18 g 2 Active HYDROcodone-acet aminophen (NORCO) 5-325 MG TabletIndication s:Pain Take 1 Tablet by mouth every 6 hours as needed for Severe pain. Indications: Pain 12 Tablet 4 Active Additional Information Patient not taking.Reported on 02/23/2024 ondansetron (ZOFRAN-ODT) 4 MG TABLET DISPERSIBLEIndic ations:Nausea and vomiting, unspecified vomiting type Take 1 Tablet by mouth every 8 hours as needed for Nausea - 1st line. 15 Tablet 4 Active Active Problems Problem Noted Date Diagnosed Date PTSD (post-traumatic stress disorder) 07/10/2023 Bilateral hearing loss 10/06/2017 Major depressive disorder, r ecurrent episode, severe with anxious distress 08/18/2017 Major neurocognitive disorde r due to another medical condition with behavioral disturbance 08/18/2017 Concussion without loss of consciousness 018 Dysmenorrhea 02/02/2017 B12 deficiency 04/26/2016 School problem 04/26/2016 Intractable cluster headache syndrome 04/26/2016 Panic disorder without agoraphobia with mild crabtree ic attacks 04/25/2016 Anxiety 04/14/2016 Fatigue 04/14/2016 Migraine without aura and wi th status migrainosus, not intractable 04/14/2016 Gastroesophageal reflux disease 04/14/2016 Comments Yes Resolved Problems Problem Noted Date Diagnosed Date Resolved Date Major depressive disorder, r ecurrent episode, moderate with anxious distress 04/25/2016 8 Depression 04/14/2016 08/18/2017 Encounters Date Type Department Care Team Description 11/11/2024 [facility] Central [facility]uling [address] [place] [address] Mckenzie Morrison APRN, HEAD BAKER First trimester bleeding (Primary Dx) 11/06/2024 7:32 PM CDT - 11/07/2024 12:27 AM CDT Emergency [facility] Emergency [address] [place] [address] Alberta Nava APRN, Tae Murray MD Threatened in first trimester Discharge Disposition: Discharged to home or Selfcare 11/06/2024 Travel from Last 3 Months Immunizations Immunization Administration Dates Next Due DTAP VACCINE 06/16/2003, 0,1998,09/05,1998 Hib (HbOC) 05/17/2001,1998,1998 Influenza Vaccine, Quadrivalent, PF 01/08/2018,1 Influenza, Seasonal, Injecta ble, Undefined 01/26/2011,01/25/2010,12/19/2008 Meningococcal MCV4O 12/17/2015 TDAP Vaccine 02/11/2009 Family History Medical History Relation Name Comments High Cholesterol Father Hypertension Father Drug Abuse Mother Relation Name Status Comments Father Alive Mother Alive Social History Tobacco Use Types Packs/Day Years Used Date Smoking Tobacco: Never Smokeless Tobacco: Never Tobacco Cessation:Counseling Given: Not Answered Alcohol Use Standard Drinks/Week Comments No 0 (1 standard drink = 0.6 oz pur e alcohol) PHQ-2 Answer Date Recorded PHQ-2 Score 0 11/20/2018 Sexually Active Control Partners Comments Yes Male Comments Yes Sex and Gender Information Value Date Recorded Sex Assigned at Not on file Legal Sex Female 10:50 PM CDT Gender Identity Not on file Sexual Orientation Not on file Last Filed Vital Signs Vital Sign Reading Time Taken Comments Blood Pressure 117/72 11/06/2024 10:15 PM CDT Pulse 97 11/06/2024 10:30 PM CDT Temperature 37.1 C (98.8 F) 11/06/2024 7:41 PM CDT Respiratory Rate 19 11/06/2024 7:41 PM CDT Oxygen Saturation 100% 11/06/2024 10:30 PM CDT Inhaled Oxygen Concentration - - Weight 77.1 kg (170 lb) 11/06/2024 7:41 PM CDT Height 162.6 cm (5' 4) 11/06/2024 7:41 PM CDT Body Mass Index 29.18 11/06/2024 7:41 PM CDT Plan of Treatment Health Maintenance Due Date Last Done Comments Hepatitis C Virus (HCV) Screening 1998 Pap Smear 2019 DTaP/Tdap/Td Immunization (7 - Td or Tdap) 02/11/2019 02/11/2009, 06/16/2003, 12/20/1999, Additional history exists Td Immunization Every 10 Years (Adults With 1 Tdap) 02/11/2019 02/11/2009 Influenza Immunization (#1) 2024 12/, 01/08/2018, 12/18/2017, Additional history exists SARS-COV-2 Immunization ( - season) 2024 03/16/2021, 02/23/2021 Respiratory Syncytial Virus (RSV) Immunization (Adult) (1 - 1-dose 75+ series) 2073 Hepatitis B Immunization Completed 999, 1998, 1998 Human Papillomavirus (HPV) Immunization Completed 08/05/2009, 12/19/2008, 10/20/2008 Meningococcal Immunization (ACWY) Completed 12/17/2015, 07/26/2010 Pneumococcal Immunization Combined Aged Out No longer eligible based on patient's age to complete this topic Rotavirus Immunization Aged Out No lo nger eligible based on patient's age to complete this topic Goals Goal Patient Goal Type Associated Problems Recent Progress Patient-Stated? Author I want to be able to feel my emotionas in a regulated way. So it's not like all or nothing. Behavioral Health Improving(02/2024 3:53 PM CDT) Yes Maryana Brown, CURRICULUM COACH Note: Goal/Objective: Improve emotion regulation. Anticipated Time Frame for Goal Completion: 6 months Goal Reviewed with: patient Readiness to change: Ready to change Department associated with goal: [facility] Steps to achieve goal: will attend psychotherapy/counseling at least monthly at least 6 sessions and self disclose to have an outlet for distressing thoughts and feelings. will identify at least two ways to engage in self expression and to gain relief from distressing emotions and thoughts. will implement one other way, in addition to counseling, to engage in self expression and to gain relief from distressing emotions and thoughts. Procedures Procedure Name Priority Date/Time Associated Diagnosis Comments US 1ST PREG UTERUS COMP TRIMESTER W/ TRANSVAG Stat with Interpretation 11/06/2024 11:06 PM CDT CBC WITH AUTO DIFFERENTIAL STAT 11/06/2024 8:00 PM CDT HCG BETA SUBUNIT SERUM QUANT STAT 11/06/2024 8:00 PM CDT URINALYSIS REFLEX IF INDICATED BY ABNORMAL RESULTS STAT 11/06/2024 8:00 PM CDT CMP (COMPREHENSIVE METABOLIC PANEL) STAT 11/06/2024 8:00 PM CDT COMPLETE BLOOD COUNT (CBC) WITH DIFF STAT 11/06/2024 8:00 PM CDT POCT URINE HCG () STAT 11/06/2024 7:58 PM CDT from Last 3 Months Results * US 1ST PREG UTERUS COMP TRIMESTER W/ TRANSVAG (11/06/2024 11:06 PM CDT) Anatomical Region Laterality Modality OB N/A Ultrasound 11/06/2024 11:1 9 PM CDT Impressions 11/06/2024 11:22 PM CDT IMPRESSION: Single live intrauterine . Narrative 11/06/2024 11:22 PM CDT EXAM DESCRIPTION: US 1ST PREG UTERUS COMP TRIMESTER W/ TRANSVAG REASON FOR STUDY: Cramping and vaginal bleeding today. Concern for ectopic . Beta-hC,344 TECHNIQUE: Transabdominal and transvaginal images acquired of the pelvis. COMPARISON: None FINDINGS: The uterus measures 8.5 cm craniocaudal by 4.5 cm AP x 6.7 cm transverse. There is an intrauterine gestational sac along the upper aspect of the endometrial canal containing a pole with crown-rump length 3.11 mm characteristic of gestational age 6 weeks 0 days. heart rate was 115 beats per minute. Yolk sac measured 3 mm. The right ovary measured 6.3 cm x 5.9 cm x 4.1 cm, while the left ovary measured 2.6 cm x 1.9 cm x 1.7 cm. Color flow Doppler images show normal blood flow to both ovaries. There are multiple right ovarian cysts, with the largest measuring 3.9 cm. There is a small amount of free fluid within the pelvis. THIS IS AN ELECTRONICALLY VERIFIED FINAL REPORT 11/06/2024 11:19 PM - Electronically signed by Joselito Rasheed M.D. KT: TOBY Report ID: [id number] Reading Location: [id number] Procedure Note Joselito Rasheed MD - 11/06/2024 EXAM DESCRIPTION: US 1ST PREG UTERUS COMP TRIMESTER W/ TRANSVAG REASON FOR STUDY: Cramping and vaginal bleeding today. Concern for ectopic . Beta-hC,344 TECHNIQUE: Transabdominal and transvaginal images acquired of the pelvis. COMPARISON: None FINDINGS: The uterus measures 8.5 cm craniocaudal by 4.5 cm AP x 6.7 cm transverse. There is an intrauterine gestational sac along the upper aspect of the endometrial canal containing a pole with crown-rump length 3.11 mm characteristic of gestational age 6 weeks 0 days. heart rate was 115 beats per minute. Yolk sac measured 3 mm. The right ovary measured 6.3 cm x 5.9 cm x 4.1 cm, while the left ovary measured 2.6 cm x 1.9 cm x 1.7 cm. Color flow Doppler images show normal blood flow to both ovaries. There are multiple right ovarian cysts, with the largest measuring 3.9 cm. There is a small amount of free fluid within the pelvis. THIS IS AN ELECTRONICALLY VERIFIED FINAL REPORT 11/06/2024 11:19 PM - Electronically signed by Joselito Rasheed M.D. KT: KT Report ID: [id number] Reading Location: [place] [address] IMPRESSION: Single live intrauterine . Alberta Nava APRN, HEAD BAKER IMG US OB Fi nal Result * (ABNORMAL) Urinalysis w/ Reflex (11/06/2024 8:00 PM CDT) SPECIFIC GRAVITY 1.025 1.003 - 1.030 11/06/2024 9:01 PM CDT [facility] URINE PH 6.0 5.0 - 9.0 11/06/2024 9:01 PM CDT [facility] WBC ESTERASE Negative Negative 11/06/2024 9:01 PM CDT [facility] NITRITE Negative Negative 11/06/2024 9:01 PM CDT [facility] PROTEIN, RANDOM URINE 30 mg/dL(A) Negative 11/06/2024 9:01 PM CDT [facility] URINE GLUCOSE, QUAL Negative Negative 11/06/2024 9:01 PM CDT [facility] URINE KETONES Negative Negative 11/06/2024 9:01 PM CDT [facility] UROBILINOGEN Normal Normal mg/dL 11/06/2024 9:01 PM CDT [facility] URINE BLOOD 250 /uL(A) Negative maddie/ul 11/06/2024 9:01 PM CDT [facility] URINALYSIS COLOR Dark Yellow 025 9:01 PM CDT [facility] URINALYSIS CLARITY Very Cloudy 11/06/2024 9:01 PM CDT [facility] WBC (Urine) 0-5 Negative, 0-5 /hpf 11/06/2024 9:01 PM CDT [facility] URINE RBC'S Packed(A) Negative, 0-2 /hpf 11/06/2024 9:01 PM CDT [facility] EPITHELIAL CELLS Occasional /lpf 11/07/19 9:01 PM CDT [facility] BACTERIA, URINE Few(A) Negative /hpf 11/06/2024 9:01 PM CDT [facility] Urine URINE SPECIMEN / Unknown Non-Phlebotomy Collection / Unknown 11/06/2024 8:00 PM CDT 11/06/2024 8:20 PM CDT us Alberta Nava KNOWLEDGE ARCHITECT, HEAD BAKER URINE ORDERABLES F inal Result [facility] [address] [place] [address] * (ABNORMAL) CBC with Auto Differential (11/06/2024 8:00 PM CDT) WBC 9.65 4.00 - 12.00 10(3)/mcL 11/06/2024 8:22 PM CDT [facility] RBC 4.76 3.80 - 5.30 10(6)/mcL 11/06/2024 8:22 PM CDT [facility] HEMOGLOBIN (HGB) 14.1 12.0 - 15.8 g/dL 11/06/2024 8:22 PM CDT [facility] HEMATOCRIT (HCT) 42.1 36.0 - 47.0 % 11/06/2024 8:22 PM CDT [facility] MCV 88.4 82.0 - 96.0 fL 11/06/2024 8:22 PM CDT [facility] MCH 29.6 26.0 - 34.0 pg 11/06/2024 8:22 PM CDT [facility] MCHC 33.5 31.0 - 36.0 g/dL 11/06/2024 8:22 PM CDT [facility] PLATELET COUNT 255 140 - 440 10(3)/mcL 11/06/2024 8:22 PM CDT [facility] RDW 12.4 11.8 - 15.5 % 11/06/2024 8:22 PM CDT [facility] MPV 10.8 9.7 - 12.4 fL 11/06/2024 8:22 PM CDT [facility] NEUTROPHILS 71.3 47.0 - 73.0 % 11/06/2024 8:22 PM CDT [facility] LYMPHOCYTES 19.0 18.0 - 42.0 % 11/06/2024 8:22 PM CDT [facility] MONOCYTES 7.8 4.0 - 12.0 % 11/06/2024 8:22 PM CDT [facility] EOSINOPHILS 0.8 0.0 - 5.0 % 11/06/2024 8:22 PM CDT [facility] BASOPHILS 0.5 0.0 - 1.0 % 11/06/2024 8:22 PM CDT [facility] IMMATURE GRANULOCYTE 0.6(H) 0.0 - 0.4 % 11/06/2024 8:22 PM CDT [facility] Comment:Immature Granulocyte s includes Metamyelocytes, Myelocytes, and Promyelocytes. ABSOLUTE NEUTROPHILS 6.88 1.60 - 7.70 10(3)/mcL 11/06/2024 8:22 PM CDT [facility] ABSOLUTE LYMPHOCYTES 1.83 1.30 - 3.20 10(3)/mcL 11/06/2024 8:22 PM CDT [facility] ABSOLUTE MONOCYTES 0.75 0.20 - 1.00 10(3)/mcL 11/06/2024 8:22 PM CDT [facility] ABSOLUTE EOSINOPHIL 0.08 0.00 - 0.40 10(3)/[facility] 11/06/2024 8:22 PM CDT [facility] ABSOLUTE BASOPHILS 0.05 0.00 - 0.10 10(3)/mcL 11/06/2024 8:22 PM CDT [facility] ABSOLUTE IMMATURE GRANULOCYTE 0.06(H) 0.00 - 0.03 10 (3) mcL. 11/06/2024 8:22 PM CDT [facility] NRBC PER 100 WBC 0 11/07/19 8:22 PM CDT [facility] Blood Venipuncture / Unknown 11/06/2024 8:00 PM CDT 11/06/2024 8:20 PM CDT us Alberta Nava APRN, HEAD BAKER HEMATOLOGY ORDERAB LES Final Result [facility] [address] [place] [address] * (ABNORMAL) HCG Beta Subunit Serum Quant (11/06/2024 8:00 PM CDT) Pathologist [facility] HCG BETA SUBUNIT, QUANT 25,344.81( H) 0.00 - 5.00 mIU/mL 11/06/2024 9:23 PM CDT [facility] Blood Venipuncture / Unknown 11/06/2024 8:00 PM CDT 11/06/2024 8:20 PM CDT Narrative [facility] - 11/06/2024 9:23 PM CDT HCG levels should be interpreted with consideration given to the patient's clinical condition. No currently available hCG test is approved by the FDA for use as a tumor marker. hCG results <5 mIU/mL are considered negative. Weeks post LMP hCG range (mIU/mL) 1 - 10 202 - 231,000 11 - 15 22,536 - 234,990 16 - 22 8,007 - 50,064 23 - 40 1,600 - 49,413 The concentration of hCG in maternal serum rises rapidly in early , hCG levels less than 25 mIU/mL do not exclude . A further sample should be tested after 48 hours if is suspected. Heterophilic antibodies present in the serum of some patients may cause a false positive result in the assay. Before making a diagnosis of malignancy based on elevated hCG, confirm results with a urine hCG. us Alberta Nava APRN, CNP CHEMISTRY ORDERABL ES Final Result [facility] [address] [place] [address] * (ABNORMAL) CMP (11/06/2024 8:00 PM CDT) SODIUM 138 136 - 145 mmol/L 11/06/2024 8:42 PM CDT [facility] POTASSIUM 3.7 3.5 - 5.1 mmol/L 11/06/2024 8:42 PM CDT [facility] CHLORIDE 106 98 - 107 mmol/L 11/06/2024 8:42 PM CDT [facility] CO2, VENOUS 22 22 - 30 mmol/L 11/06/2024 8:42 PM CDT [facility] ANION GAP 13.7 <18.0 mmol/L 11/06/2024 8:42 PM CDT [facility] GLUCOSE 84 70 - 99 mg/dL 11/06/2024 8:42 PM CDT [facility] BUN 11 5 - 18 mg/dL 11/06/2024 8:42 PM CDT [facility] CREATININE, BLOOD 0.59(L) 0.60 - 1.00 mg/dL 11/06/2024 8:42 PM T [facility] BUN/CREATININE RATIO 19 12 - 20 ratio 11/06/2024 8:42 PM CDT [facility] TOTAL PROTEIN 7.7 6.0 - 8.0 g/dL 11/06/2024 8:42 PM CDT [facility] ALBUMIN 4.6 3.5 - 5.0 g/dL 11/06/2024 8:42 PM T [facility] A/G RATIO 1.5 1.0 - 2.2 11/06/2024 8:42 PM CDT [facility] CALCIUM 9.4 8.7 - 10.5 mg/dL 11/06/2024 8:42 PM CDT [facility] T BILI 0.3 0.2 - 1.2 mg/dL 11/06/2024 8:42 PM CDT [facility] SGOT (AST) 18 <43 U/L 11/06/2024 8:42 PM T [facility] SGPT (ALT) 20 <56 U/L 11/06/2024 8:42 PM T [facility] ALKALINE PHOSPHATASE 45 40 - 150 U/L 11/06/2024 8:42 PM T [facility] GFR, ESTIMATED >60 >=60 11/06/2024 8:42 PM CDT [facility] Comment: Creatinine Clearance is the preferred criteria for selecting drug dose adjustments in renally impaired patients. The GFR is provided as additional pertinent clinical information. GFR is reported in mL/min/1.73 sq m. Calculation based on the 2020 Chronic Kidney Disease Epidemiology Collaboration (CKD-EPI) equation refit without adjustment for race. GFR, EST. >60 >=60 025 8:42 PM T [facility] Comment: Creatinine Clearance is the preferred criteria for selecting drug dose adjustments in renally impaired patients. The GFR is provided as additional pertinent clinical information. GFR is reported in mL/min/1.73 sq m. Calculation based on the 2009 Chronic Kidney Disease Epidemiology Collaboration (CKD-EPI). GFR, EST. NONAFRICAN >60 >=60 11/06/2024 8:42 PM CDT [facility] Comment: Creatinine Clearance is the preferred criteria for selecting drug dose adjustments in renally impaired patients. The GFR is provided as additional pertinent clinical information. GFR is reported in mL/min/1.73 sq m. Calculation based on the 2009 Chronic Kidney Disease Epidemiology Collaboration (CKD-EPI). Blood Venipuncture / Unknown 11/06/2024 8:00 PM CDT 11/06/2024 8:20 PM CDT Alberta Nava APRN, CNP CHEMISTRY ORDERABL ES Final Result [facility] [address] [place] [address] * POCT Urine HCG () (11/06/2024 7:58 PM CDT) POC URINE Positive POC URINE CONTROL Cutter Machine Pass Urine 11/06/2024 7:58 PM CDT Alberta Nava APRN, CNP POINT OF CARE TEST ING (MANUAL) Final Result from Last 3 [place] [address] MEDICAID [place] Care Teams Tile Erector Relationship Specialty Start Date End Date Gildardo Guerra MD [address] [place] [address] [address] PCP - General Memory Care Program Resident 10/25/21
--- OUTSIDE RECORDS SUMMARY | 2024-12-31 15:19 | XMS_ITS | Clinical Summary ---
Author Organization [facility] Address [address] [place] [id number] Care Team Providers Care Transformer Assembler Name Role Phone Gildardo Guerra MD Primary Care Provider [phone] Allergies No known active allergies Social History Tobacco Use Types Packs/Day Years Used Date Smoking Tobacco: Never Smokeless Tobacco: Never Tobacco Cessation:Counseling Given: Not Answered Alcohol Use Standard Drinks/Week Comments Not Currently 0 (1 standard drink = 0.6 oz pur e alcohol) Comments No Sex and Gender Information Value Date Recorded Sex Assigned at Not on file Legal Sex Female 12:51 PM SENIOR COMMERCIAL LOAN OFFICER Gender Identity Not on file Sexual Orientation Not on file Last Filed Vital Signs Vital Sign Reading Time Taken Comments Blood Pressure 101/61 03/07/2023 2:45 PM SENIOR COMMERCIAL LOAN OFFICER Pulse 61 03/07/2023 2:45 PM SENIOR COMMERCIAL LOAN OFFICER Temperature 37.2 C (98.9 F) 03/07/2023 1:03 PM SENIOR COMMERCIAL LOAN OFFICER Respiratory Rate 18 03/07/2023 2:45 PM SENIOR COMMERCIAL LOAN OFFICER Oxygen Saturation 100% 03/07/2023 2:45 PM SENIOR COMMERCIAL LOAN OFFICER Inhaled Oxygen Concentration - - Weight 68 kg (150 lb) 03/07/2023 1:03 PM SENIOR COMMERCIAL LOAN OFFICER Height 162.6 cm (5' 4) 03/07/2023 1:03 PM SENIOR COMMERCIAL LOAN OFFICER Body Mass Index 25.75 03/07/2023 1:03 PM SENIOR COMMERCIAL LOAN OFFICER Plan of Treatment Health Maintenance Due Date Last Done Comments Cervical Cancer Screening Pap Smear (Age 21 to 29) Every 3 Years 1998 Cervical Cancer Screening 1998 Annual Physical 2001 Hepatitis C 01/29/2016 DTaP, Tdap and Td Vaccines (7 - Td or Tdap) 02/11/2019 02/11/2009, 06/16/2003, 12/20/1999, Additional history exists COVID-19 Vaccine ( season) 2024 03/16/2021, 02/23/2021 Influenza Adult (#1) 2024 01/08/2018, 12/18/2017, 01/26/2011, Additional history exists Hepatitis B Vaccines Completed 1998, 1998, 1998 HPV Vaccines Completed 08/05/2009, 04/2008, 10/20/2008 Meningococcal Vaccine Completed 12/17/2015 , 12/17/2015, 07/26/2010 Meningococcal B Vaccine Aged Out No l onger eligible based on patient's age to complete this topic Pneumococcal Vaccine: Pediatrics (0 to 5 Years) and At-Risk Patients (6 to 49 Years) Aged Out No longer eligible based on patient's age to complete this topic RSV Immunizations Under 20 Months Aged Out No longer eligible based on patient's age to complete this topic Insurance Care Teams Transformer Assembler Relationship Specialty Start Date End Date Gildardo Guerra MD [address] [place] [address] [place] [address] PCP - General FAMILY PRACTICE 03/07/23
--- OUTSIDE RECORDS SUMMARY | 2024-12-31 15:19 | XMS_ITS | Clinical Summary ---
Author Organization [facility] Address [address] [place] [address] Care Team Providers Care Shirt Bander Name Role Phone Unavailable Primary Care Provider Unavailabl e Source Comments [facility],non-owned Affiliates and Associated Physician Practices is amultiple site organization consisting of ambulatory clinics and hospital sitesin [place], [place], [place]. This disclosure is being madepursuant to the Care Everywhere program and may not contain all information available regarding this patient. 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 Gender Identity Not on file Sexual Orientation Not on file Plan of Treatment Health Maintenance Due Date Last Done Comments HIV SCREENING 2013 HPV VACCINE (1 - 3-dose series) 2013 HEPATITIS C SCREENING 01/24/2016 DTAP/TDAP/TD VACCINES (1 - Tdap) 2017 HEPATITIS B VACCINE (1 of 3 - 19+ 3-dose series) 2017 PAP SMEAR 2019 DEPRESSION SCREENING 03/20/2024 COVID-19 VACCINE (1 - 2023-2 5 season) 2024 INFLUENZA VACCINE (#1) 2024 ZOSTER VACCINE (1 of 2) 01/29/2048 MENINGOCOCCAL GROUPS A/C/Y/W VACCINE Completed 12/17/2015 HIB VACCINE Aged Out No longer eligi ble based on patient's age to complete this topic MENINGOCOCCAL (Group B) VACC INE SHARED DECISION-MAKING Aged Out No longer eligibl e based on patient's age to complete this topic PNEUMOCOCCAL VACCINE Aged Out No long er eligible based on patient's age to complete this topic [place] [address] [employer] [facility] Member Subscriber Plan / Payer (Ef fective for All Dates) Name:Ynes Andujar Relation to Subscriber:Self Name:YNES ANDUJAR Payer ID:[id number] (NAIC) Group ID:Not on file Type:Medicaid Managed Care [facility] [address] [employer] [facility]
--- OUTSIDE RECORDS SUMMARY | 2024-12-31 15:19 | XMS_ITS ---
Author Organization [facility] Address [address] [address] Phone Care Team Providers Care Working Supervisor Name Role Phone Gildardo Guerra MD Primary Care Provider [phone] [facility] Status:Enrolled (Active) Start date:08/15/2024 Enrollment date:08/15/2024 Related social drivers of health:Intimate Partner Violence, Social Connections, Alcohol Use, Financial Resource Strain, Stress, Physical Activity, Food Insecurity, Transportation Needs, Housing Stability, Utilities Related service episodes:[facility] (Enrolling) Continued Care and Services Coordination
== END 2024-12-31 14:26 | disposition home or self-care (01) ==
DX: H00.015 Hordeolum externum left lower eyelid (principal); J00 Acute nasopharyngitis [common cold]; Z20.822 Contact with and (suspected) exposure to COVID-19
CPT/HCPCS: 87081; 87426; 87804; 87880; 99213; G0463

== ENCOUNTER 2025-03-14 16:45 | Emergency (ER) | payer OTHER, SELFPAY ==
[2025-03-14 16:57] VITALS: BP 114/74; PULSE 98; RESP 20; TEMP 36.7; O2SAT 100
--- NOTE | 2025-03-14 17:19 | ED_ITS ---
HPI - URI/Sore Throat General Chief Complaint: Fever Stated Complaint: Fever/Vomiting/Body Aches Time Seen by Provider: 03/14/25 17:00 Source: patient Mode of arrival: ambulatory Limitations: no limitations History of Present Illness HPI Narrative: Juana is a 25-year-old female patient presenting to the clinic today with complaints of fever, vomiting, body aches, sore throat, and nasal congestion x4 days. She reports she has vomited twice today but has vomited several times yesterday. Denies any chest pain or shortness of breath. No abdominal pain, vaginal discharge/bleeding. Has taken Tylenol for her symptoms. She is 24 weeks . Related Data Home Medications ?Medication ?Instructions ?Recorded ?Confirmed ?Last Taken ?Type vit no.95-ferrous tablet PO 03/14/25 Unknown History fumarate 28 mg-folic acid 800 mcg tablet () Allergies Allergy/AdvReac Type Severity Reaction Status Date / Time No Known Allergies Allergy Verified 03/14/25 17:06 Review of Systems Review of Systems: Pertinent positives per HPI. Patient denies any rash, headache, visual changes, dizziness, shortness of breath, chest pain, palpitations, diarrhea, constipation, abdominal pain, or any urinary issues. [facility] Past Medical History Medical History Depression Social History Social History Smoking status: Never smoker Alcohol intake: current Alcohol use details: social Substance use type: does not use Gender identity (if verbalized by the patient): Female Comments At the time of my signature, I reviewed and agree with the nursing past medical, surgical, social, and family history. There is no relevant family history pertinent to the patient complaint. Exam Narrative: General: Well-developed, obese, in no apparent distress Head: Normocephalic, atraumatic Eyes: Pupils equally round and reactive to light bilaterally, EOM intact, sclera and conjunctive clear, no discharge, lids normal Ears: TMs intact and congested, ear canals clear, no drainage, grossly hearing normal. Nose: Nares patent, clear nasal discharge, mild inflammation, no sinus tenderness. Mouth: Oral pharynx red without lesions or masses, good dentition, MMM. Postnasal drip Neck: Supple, trachea midline, no enlargement of anterior or posterior cervical nodes, no thyroid masses or goiter palpable. Cardio: Regular rate and rhythm, s1 and s2 normal, no murmur appreciated. Resp: Clear to auscultation bilaterally, no rhonchi, rales, wheezing or rubs Abdomen: abdomen, soft, pliable, bowel sounds present in all quadrants, non-tender to palpation, no organomegly, no CVAT tenderness. Course Course Level of Care: Express Care Visit Vital Signs Vital signs: Vital Signs Temperature 36.7 C 03/14/25 16:57 Pulse Rate 98 03/14/25 16:57 Respiratory Rate 20 03/14/25 16:57 Blood Pressure 114/74 03/14/25 16:57 Pulse Oximetry 100 03/14/25 16:57 Oxygen Delivery Room Air 03/14/25 16:57 Temperature 36.7 C 03/14/25 16:57 Pulse Rate 98 03/14/25 16:57 Respiratory Rate 20 03/14/25 16:57 Blood Pressure 114/74 03/14/25 16:57 Pulse Oximetry 100 03/14/25 16:57 Oxygen Delivery Room Air 03/14/25 16:57 MDM MDM Narrative Medical decision making narrative: At the time of visit patient is resting comfortably on the exam table. Patient appears to be nontoxic. complaints of fever, vomiting, body aches, sore throat, and nasal congestion x4 days. She reports she has vomited twice today but has vomited several times yesterday. Denies any chest pain or shortness of breath. No abdominal pain, vaginal discharge/bleeding. Has taken Tylenol for her symptoms. She is 24 weeks . On exam patient has bilateral TMs intact and congested, nasal drainage, mild anterior turbinate inflammation, no sinus tenderness, oral pharynx red with postnasal drip, no cervical lymphadenopathy, heart rates regular rate and rhythm, lung sounds are clear. Mucous membranes are moist. Vital signs are stable. COVID, flu, and strep test were ordered. Labs: COVID, influenza, and strep test were negative in the clinic today. We will send strep for culture. Plan: I suspect patient has URI/pharyngitis/viral syndrome. Prescription was sent to the pharmacy for Zofran. Appropriate medications were reviewed with the patient. Supportive measures were discussed with the patient and they voiced understanding discharge instructions and agrees to treatment plan. Return precautions reviewed Differential Diagnosis Differential Diagnosis: Differential diagnostic considerations for upper respiratory infection include upper respiratory infection, croup, otitis media, sinusitis, viral infection, bronchitis, influenza, pharyngitis, strep, uvulitis. Lab Data Labs: Lab Results 03/14/25 Range/Units 17:20 POC Influenza A Ag Negative (Negative) POC Influenza B Ag Negative (Negative) POC SARS CoV-2 Ag Negative (Negative) POC Grp A Strep Screen Negative (Negative) Discharge Plan Discharge Clinical Impression: Acute viral syndrome URI (upper respiratory infection) Qualifiers: URI type: unspecified URI Qualified Code(s): J06.9 - Acute upper respiratory infection, unspecified Pharyngitis Qualifiers: Pharyngitis/tonsillitis etiology: unspecified etiology Qualified Code(s): J02.9 - Acute pharyngitis, unspecified Patient Disposition: Home Condition: Stable Instructions: Antibiotic Form, Pharyngitis (ED), Viral Syndrome (ED), Cold Symptoms (ED) Additional Instructions: COVID, flu, and strep test were all negative in the clinic today. We will send strep for culture if this comes back positive we will contact him place you on antibiotics at that time. Increase fluids and stay well hydrated May take Tylenol or motrin as directed on bottle for pain/fever May use Flonase 1 spray in each nare daily May take OTC antihistamines such as Zyrtec or Claritin daily as directed on bottle May apply Vicks vapor rub to chest to open sinuses Sinus rinses for congestion Cepacol spray, cough drops, throat lozenges, warm tea with honey/lemon, gargle salt water to soothe throat BRAT diet for diarrhea Clear liquids x 24 hours then advance as tolerated for nausea/vomiting Go to the ED if you develop a worsening in your condition- high fever not controlled by Tylenol or Motrin, dehydration, weakness, lethargy, shortness of breath, or chest pain. Follow up with your PCP in 3-5 days if symptoms persist. Approved Medications for Patients Cold and Flu Symptoms --Tylenol (regular or extra Strength) Fever (call if over 101?)--Tylenol (regular or extra Strength) Nasal Drainage/Head Congestion--Chlor-Trimeton, Sudafed, Tavist,Tylenol Sinus Cough--Robitussin, Delsym, Mucinex Sore Throat--Chloraseptic, Cepacol lozenges Allergy Symptoms--Bendryl, Zyrtec, Zyrtec D, Claritin, Claritin D Nausea--Emetrol, Vitamin B6 Tablets, Chelo, Chelo Tea, Preggie Pops, B-Jarett Suckers Constipation--Milk of Magnesia, Metamucil, Fiberall, Konsyl, Colace (Docusate Sodium) Diarrhea--Imodium, Kaopectate, Follow BRAT diet: bananas, rice, applesauce, tea/toast Heartburn--Maalox, Mylanta, TUMS, Prilosec OTC, Zantac, Tagamet, Prevacid, Pepcid Hemorrhoids--Tucks Pads, Anusol, Preparation H, warm sitz baths Patient Language: Argentine Prescriptions: New ondansetron 8 mg tablet,disintegrating 8 mg PO Q8H PRN (Reason: nausea and vomiting) 3 Days Qty: 10 0RF No Action PNV no.95-ferrous fumarate-FA [] 28 mg iron- 800 mcg tablet PO Follow-up/Referrals: UNKNOWN,DOCTOR [Primary Care Provider] Time of Disposition: 17:22 Quality NIHSS Nursing Documentation ED NIHSS nursing documentation: reviewed/agree
[2025-03-14 17:21] LABS: EDCOVIDSCREEN Negative (Negative); EDINFLUASCREEN Negative (Negative); EDINFLUBSCREEN Negative (Negative); EDSTREPNEGPOS1 Negative (Negative)
== END 2025-03-14 17:32 | disposition home or self-care (01) ==
PROVIDERS: Emergency Provider Nurse Practitioner Family
DX: B34.9 Viral infection, unspecified (principal); J06.9 Acute upper respiratory infection, unspecified; J02.9 Acute pharyngitis, unspecified; Z20.822 Contact with and (suspected) exposure to COVID-19
CPT/HCPCS: 87081; 87426; 87804; 87880; 99213; G0463